=== PATIENT | female | born 1980 | race Caucasian/White ===

== ENCOUNTER 2017-11-19 20:11 | Emergency (ER) | payer OTHER ==
[~2017-11-19] VITALS: Ht 170.2 cm; Wt 68.5 kg
[~2017-11-19 20:11] MED LIST: COL100 PO; NORCO1 TA1 PO
[2017-11-19 20:41] VITALS: Ht 170.2 cm; Wt 68.5 kg
[2017-11-20 00:32] VITALS: BP 111/68
== END 2017-11-20 00:32 | disposition home or self-care (01) ==
LOC: ED 20:11
DX: R51 Headache (principal); M54.2 Cervicalgia
CPT/HCPCS: 87804; J2550; J7030